=== PATIENT | female | born 1950 | race Caucasian/White ===

== ENCOUNTER 2018-03-10 10:24 | Outpatient (CLI) | payer OTHER, SELFPAY ==
[2018-03-10] VITALS (17 sets, daily range): BP systolic 130–159; BP diastolic 63–87; PULSE 72–85; RESP 10–18; TEMP 36.6; O2SAT 92–100
--- NOTE | 2018-03-10 10:26 | DI.RAD.S_ITS ---
PROCEDURE: PAIN L/S MED/LAT N RFA BILAT INDICATIONS: BIOMECHANICAL LESIONS OF LUMBAR SPINE FINDINGS: Fluoroscopic spot filming was performed to verify placement of spinal needles at the L4, L5 and S1 level(s), as labeled on the films. Appropriate location(s) of the needle tip(s) was confirmed by injection of iodinated contrast. Dictated by: Fabrizio Maria M.D. on 03/10/2018 at 15:24 Approved by: Fabrizio Maria M.D. on 03/10/2018 at 15:24
[2018-03-10] MEDS: MIDAZOLAM 5 MG/5 ML VIAL IV (11:03)
[2018-03-10] MEDS: fentaNYL 100 MCG/2 ML INJ 50 MCG IV (11:30)
[2018-03-10] MEDS: LIDOCAINE 1% 20 ML INJ INJ (11:44)
[2018-03-10] MEDS: BUPIVACAINE 0.25% (PF) VIAL 2 ML INJ (11:44)
--- NOTE | 2018-03-10 11:58 | PC.NURSE ---
pt finished procedure, tolerated well. She was awake and able to get off the table with 2 person assist related to her legs feeling numb. Transferred her from wheelchair to pre procedure room to Linh LOPEZ for continued monitoring.
--- NOTE | 2018-03-10 12:09 | P.PCN_ITS ---
Procedures Date/Time Date of procedure: 03/10/18 Time of procedure: 12:08 General Procedure description: PREOP DIAGNOSIS 1. RECALCITRANT FACET ARTHROPATHY, POST OP DIAGNOSIS 1. RECALCITRANT FACET ARTHROPATHY PROCEDURES 1. BILATERAL L4 AND L5 MEDIAL BRANCH RADIOFREQUENCY NEUROTOMY AND S1 DORSAL RAMUS BRANCH RADIOFREQUENCY NEUROTOMY, PHYSICIAN: Jr Garcia DO INDICATIONS: is referred by for treatment of facet arthropathy. DESCRIPTION OF PROCEDURE Right L4 and L5 medial branch radiofrequency neurotomy and right S1 dorsal ramus radiofrequency neurotomy under fluoroscopy with conscious sedation. The patient is well known to this clinic having undergone previous facet injections with good but temporary relief. The patient has experienced appropriate, concordant relief with previous facet and median branch blocks but the patient's pain has been recalcitrant to further conservative measures. Therefore, based upon the patient's relief and persistent symptoms, the patient is considered an appropriate candidate for facet rhizotomy. All of the patient' s questions regarding the risks versus benefits of the procedure, including, but not limited to, bleeding, infection, temporary as well as lasting nerve injury, paralysis, stroke, and , as well treatment alternatives were answered to satisfaction. After obtaining informed consent, denial of pertinent drug allergies, as well as being made aware of the potential risks of bleeding, infection, spinal cord trauma, paralysis, temporary and permanent nerve damage, seizure, stroke, and possible , the patient was brought to the fluoroscopy suite and positioned prone on the fluoroscopy table. The lumbar region was prepped with Betadine and covered with a fenestrated drape in the usual sterile fashion. Appropriate monitors applied including pulse oximeter, pulse, and blood pressure for regular monitoring throughout the procedure. After review of previous anaesthesic history and IV conscious sedation the patient was deemed safe to proceed with todays procedure with IV conscious sedation as ASA class II designation. Safety time-out was performed to confirm patient ID, procedure to be performed and site of procedure. IV sedation was accomplished with a combination of 5mg of Versed and 50mcg of Fentanyl administered by the RN after DO order, titrated to patient comfort during the course of the procedure while the patient remained responsive to all verbal commands. After local infiltration using 1% lidocaine, under fluoroscopic guidance, a 10- cm RF insulated needle with a 10-mm active tip was positioned parallel to the junction of the right sacral ala and the superior articulating process where the S1 dorsal ramus resides. Needle placement was confirmed with sensory stimulation at 50 Hz, with motor stimulation of .5v on the right which produced local stimulation without radicular component. The stimulation was then increased to 1.5v with, once again, only local multifidus stimulation without radicular component. This was then followed by two discreet lesions performed at 80 degrees Celsius for 90 seconds each. The needle was then removed and the identical procedure was performed along the length of the right L5 medial branch with motor stimulation at .7v on the right. The identical procedure was once again performed along the length of the right L4 medial branch with motor stimulation of .5v on the right. The identical procedure was repeated on the left. The patient tolerated the procedure well without signs or symptoms of complications prior to transfer to the recovery area continued monitoring without incident. The patient was then transferred to the recovery area where they were observed for an appropriate period of time after the injection. The patient reported a VAS score of 9 prior to the procedure and a post-procedure VAS of 0. Total Fluoroscopy Time: 22.7 seconds Total Conscious Sedation Time: 34min POST OP INSTRUCTIONS The patient was provided a Pain Log to continue to record the patient's response to the target-specific procedure prior to the patient's follow-up visit with the referring physician. Additionally, specific post-injection care instructions and a contact number to our office were provided if concerns arise regarding possible complications associated with the procedure are suspected. Jr Garcia, Complications: none
--- NOTE | 2018-03-10 12:17 | PC.NURSE ---
TOOK OVER PT CARE IN POST PROC AREA. PT IN STABLE CONDITION, VSS.
== END 2018-03-10 12:55 | disposition home or self-care (01) ==
PROVIDERS: PCP Family Medicine Geriatric Medicine; Visit Provider Physical Medicine & Rehabilitation
DX: M47.26 Other spondylosis with radiculopathy, lumbar region (principal); M47.27 Other spondylosis with radiculopathy, lumbosacral region; M51.16 Intervertebral disc disorders with radiculopathy, lumbar region; M99.83 Other biomechanical lesions of lumbar region
CPT/HCPCS: 64635; 64636; 99152; 99153; J1040; J1100; J2250; J3010

== ENCOUNTER → 2018-03-31 12:37 | Outpatient (CLI) | payer OTHER, SELFPAY ==
--- NOTE | 2018-03-31 | DI.ECHO.S_ITS ---
[facility]---------+ [facility] +---------+ : : [address] : : : : [id number] : : : : Phone: [phone]+ Echocardiogram Report + + :Name: ELIZABETH VIVAR Study Date: 03/31/2018 Height: 64 in : :[facility] Exam Location: [facility] Weight: 180 lb : : Gender: Female BSA: 1.9 m2 : :: 1950 Age: 67 yrs BP: 150/78 mmHg: :Reason For Study: MURMUR : : Performed By: Azam Iglesias : :Referring: Koko GR : + + Interpretation Summary Left ventricular systolic function is normal without focal wall motion abnormalities with the ejection fraction visually estimated to be 65-70%. Left ventricular wall thickness is at the upper limits of normal. Diastolic parameters suggest a relaxation abnormality of the left ventricle, consistent with probable normal filling pressures. The right ventricle is normal in size and function. Pulmonary artery pressures cannot be estimated because of the lack of a measurable TR jet velocity but the IVC suggests a CVP of around 3 mmHg. The left atrium is moderately dilated while right atrial size is normal. There is mild aortic valve sclerosis but no aortic valve stenosis. There is no significant valvular heart disease. Procedure: A two-dimensional transthoracic echocardiogram with color flow and Doppler was performed. The study quality was technically adequate. There is no prior echocardiogram noted for this patient. The patient was in normal sinus rhythm during the exam. Left Ventricle: The left ventricle is normal in size. Left ventricular wall thickness is at the upper limits of normal. Left ventricular systolic function is normal without focal wall motion abnormalities. The ejection fraction is estimated to be 65-70%. Diastolic parameters suggest a relaxation abnormality of the left ventricle, consistent with probable normal filling pressures. Right Ventricle: The right ventricle is normal in size and function. Atria: The left atrium is moderately dilated. Right atrial size is normal. The interatrial septum is intact with no evidence for an atrial septal defect. Mitral Valve: There is mild mitral annular calcification. The mitral valve leaflets appear normal. There is no evidence of stenosis, fluttering, or prolapse. There is trace mitral regurgitation. Aortic Valve: The aortic valve is trileaflet. There is mild aortic valve sclerosis. The aortic valve is mildly calcified. There is discrete nodular thickening of the left coronary cusp. Leaflet mobility is mildly reduced. There is no aortic valve stenosis. No aortic regurgitation is present. Tricuspid Valve: The tricuspid valve is normal in structure and function. There is trace tricuspid regurgitation. Pulmonary artery pressures cannot be estimated because of the lack of a measurable TR jet velocity but the IVC suggests a CVP of around 3 mmHg. Pulmonic Valve: The pulmonic valve is normal in structure and function. There is trace pulmonic regurgitation. There is no significant valvular heart disease. Great Vessels: The aortic root is normal size. The dimensions of the ascending aorta are normal. The pulmonary artery is normal size. The IVC is of normal diameter and collapses greater than 50% with a sniff. This suggests a low right atrial pressure of 3 mm Hg. Pericardium/ Pleura There is no pericardial effusion. There is no pleural effusion. MMode/2D Measurements & Calculations LVIDd: 4.7 cm LVOT diam: 2.0 cm LVIDs: 2.0 cm Ao root diam: 2.6 cm FS: 56.4 % Aortic Jxn: 2.2 cm EPSS: 0.13 cm asc Aorta Diam: 2.9 cm IVSd: 1.0 cm LVPWd: 0.90 cm LV will. diameter/BSA (cm/m^2): 2.5 LV sys. diameter/BSA (cm/m^2): 1.1 LA dimension: 4.1 cm RA long axis: 4.7 cm LA A2 area: 22.8 cm2 RA area: 17.8 cm2 LA A4 area: 23.1 cm2 RA vol: 56.9 ml LA length (vol): 5.5 cm RA : 30.4 ml/m2 LA vol: 81.1 ml IVC diam: 2.0 cm LA vol index: 43.4 ml/m2 Doppler Measurements & Calculations Ao V2 max: 206.4 cm/sec LVOT Max Jesse: 129.1 cm/sec Ao V2 mean: 158.6 cm/sec LV V1 max P.7 mmHg Ao max P.0 mmHg LV V1 VTI: 28.9 cm Ao mean P.8 mmHg DANIEL(I,D): 2.3 cm2 Ao V2 VTI: 39.6 cm DANIEL(V,D): 1.9 cm2 sev ratio: 0.73 DANIEL indexed to BSA (cm^2/m^2): 1.2 MV E max jesse: 79.6 cm/sec PA V2 max: 99.8 cm/sec MV A max jesse: 83.1 cm/sec PA V2 mean: 79.9 cm/sec MV E/A: 0.96 PA mean P.7 mmHg Med Peak E' Jesse: 7.0 cm/sec PA pr(Accel): 41.6 mmHg E/E' med: 11.3 PA Accel Time: 0.08 sec Lat Peak E' Jesse: 8.5 cm/sec E/E' lat: 9.4 E/e' average: 10.4 MV dec time: 0.23 sec Charbel Brown Jesse: 19.7 cm/sec SV([facility]): 89.5 ml Reading Physician:MORE
== END ==
PROVIDERS: PCP Family Medicine Geriatric Medicine; Visit Provider Family Medicine Geriatric Medicine
DX: I35.8 Other nonrheumatic aortic valve disorders (principal); R01.1 Cardiac murmur, unspecified
CPT/HCPCS: 93306

== ENCOUNTER 2018-06-16 11:07 | Outpatient (CLI) | payer OTHER, SELFPAY ==
[2018-06-16] VITALS (8 sets, daily range): BP systolic 126–150; BP diastolic 66–82; PULSE 80–85; RESP 16–18; TEMP 36.8; O2SAT 95–97
--- NOTE | 2018-06-16 11:09 | DI.RAD.S_ITS ---
PROCEDURE: PAIN L INTERLAMINAR/CAUDAL INJ INDICATIONS: SPONDYLOSIS FINDINGS: Fluoroscopic spot filming was performed to verify placement of spinal needles at the L4-L5 posterior midline level, as labeled on the films. Appropriate location(s) of the needle tip(s) was confirmed by injection of iodinated contrast. IMPRESSION: Successful dorsal midline epidural needle tip localization for steroid injection. Dictated by: Lucas Chiu M.D. on 06/16/2018 at 13:08 Approved by: Lucas Chiu M.D. on 06/16/2018 at 13:09
[2018-06-16] MEDS: MIDAZOLAM 5 MG/5 ML VIAL IV (11:55)
--- NOTE | 2018-06-16 12:14 | P.PCN_ITS ---
Procedures Date/Time Date of procedure: 06/16/18 Time of procedure: 12:13 General Procedure description: PROVIDER: Jr Garcia DO Operative Note PREOP DIAGNOSIS 1. HNP WITH RADICULAR FEATURES, 2. MULTILEVEL CENTRAL STENOSIS, POST OP DIAGNOSIS 1. HNP WITH RADICULAR FEATURES, 2. MULTILEVEL CENTRAL STENOSIS PROCEDURES 1. FLUORSCOPICALLY GUIDED CONTRAST CONTROLLED INTERLAMINAR EPIDURAL STEROID INJECTION -L4/5 PHYSICIAN: Jr Garcia DO INDICATIONs: Franko is referred by Dr. Duarte for treatment of Bilateral Foraminal Stenosis R>L LE symptoms. FINDINGS Multilevel Central Spinal Stenosis with Nerve Root Compression DESCRIPTION OF PROCEDURE Fluoroscopically guided, contrast-controlled L4/5 translaminar epidural steroid injection. Following denial of allergy and review of potential side effects and complications, including, but not necessarily limited to, infection, allergic reaction, local tissue breakdown, temporary as well as permanent nerve injury, paralysis, stroke and possible , the patient indicated that the patient understood and agreed to proceed. An informed consent document was signed by the patient, witnessed by a nurse, and placed in the patient's chart. Additionally, other treatment options including modalities, medications, and physical therapy were reviewed with the patient. After review of previous anaesthesic history and IV conscious sedation the patient was deemed safe to proceed with todays procedure with IV conscious sedation as ASA class II designation. Safety time-out was performed to confirm patient ID, procedure to be performed and site of procedure. IV sedation was accomplished with a combination of 2mg of Versed was administered by the RN after DO order, titrated to patient comfort during the course of the procedure while the patient remained responsive to all verbal commands In the prone position, following sterile prep and drape of the lumbar region, the L4/5 translaminar space was identified fluoroscopically. The skin was anesthetized via a 25-gauge, 1.5-inch needle with 1% lidocaine solution. At this point, a 22-gauge short bevel spinal needle was atraumatically introduced and advanced under fluoroscopic guidance into the region of the L4/5 myers slaminar space. Depth was confirmed on lateral view. Radiological data, including multiple fluoroscopic views of the lumbar spine, reveal a spinal needle at the L4/5 translaminar space. Lateral views then show placement of the needle in the epidural space. Subsequent views show contrast material flowing superiorly and inferiorly in the epidural space. No vascular or intrathecal uptake is observed. At this point, using loss of resistance technique with saline and air, the epidural space was entered. This was confirmed following negative aspiration with injection of approximately 1.5 cc of Isovue 200, showing excellent epidural flow without vascular or intrathecal uptake. At this point, 1 cc of 1% lidocaine solution combined with 2cc or 20mg of dexamethasone was injected without incident. The patient tolerated the procedure well without signs or symptoms of complications prior to transfer to the recovery area continued monitoring without incident. The patient was then transferred to the recovery area where they were observed for an appropriate period of time after the injection. The patient reported a VAS score of 6 prior to the procedure and a post- procedure VAS of 0. Total Fluoroscopy Time: 11.8 seconds, 8.99 mGy Total Conscious Sedation Time: 24min POST OP INSTRUCTIONS The patient was provided a Pain Log to continue to record their response to the target-specific procedure prior to follow-up visit with their referring physician. Additionally, specific post-injection care instructions and a contact number to our office were provided if concerns arise regarding possible complications associated with the procedure are suspected. Jr Garcia DO Complications: none
--- NOTE | 2018-06-16 12:15 | PC.NURSE ---
pt tolerated procedure well. Assisted pt off the table and into w/c with minimal assist. Transferred pt via wheelchair to pre procedure room for continued monitoring with Linh LOPEZ.
[2018-06-16] MEDS: BUPIVACAINE 0.25% (PF) VIAL 2 ML INJ (12:17)
[2018-06-16] MEDS: IOPAMIDOL 15 ML VIAL 3 ML INJ (12:17)
[2018-06-16] MEDS: DEXAMETHASONE 10 MG/ML VIAL 20 MG INJ (12:18)
--- NOTE | 2018-06-16 12:35 | DI.RAD.S_ITS ---
PROCEDURE: XR KNEE LT 3V INDICATIONS: left knee pain TECHNIQUE: 3 views of the knee were acquired. COMPARISON: None. FINDINGS: Bones: Mild tricompartment osteoarthritis in left knee is seen more prominent in the medial femorotibial compartment. No fractures or dislocations. No suspicious bony lesions. Soft tissues: No joint effusion. No suspicious soft tissue calcifications. IMPRESSION: Mild left knee tricompartmental osteoarthritis. Dictated by: Chavo Christian M.D. on 06/16/2018 at 13:25 Approved by: Chavo Christian M.D. on 06/16/2018 at 13:25
== END 2018-06-16 12:50 | disposition home or self-care (01) ==
LOC: RAD 11:08
PROVIDERS: PCP Family Medicine Geriatric Medicine; Visit Provider Physical Medicine & Rehabilitation
DX: M51.16 Intervertebral disc disorders with radiculopathy, lumbar region (principal); M48.061 Spinal stenosis, lumbar region without neurogenic claudication; M25.562 Pain in left knee; M17.12 Unilateral primary osteoarthritis, left knee
CPT/HCPCS: 62323; 73562; 99152; J1100; J2250; J3010

== ENCOUNTER → 2019-09-19 10:45 | Outpatient (CLI) | payer MEDICARE, SELFPAY ==
[2019-09-20 15:58] LABS: COVID19 Sendout NOT DETECTED (Not Detect)
== END ==
PROVIDERS: PCP Family Medicine Geriatric Medicine; Visit Provider Registered Nurse
DX: Z01.812 Encounter for preprocedural laboratory examination (principal)
CPT/HCPCS: 87635

== ENCOUNTER 2019-09-22 12:34 | Outpatient (CLI) | payer MEDICARE, SELFPAY ==
[2019-09-22] VITALS (9 sets, daily range): BP systolic 115–159; BP diastolic 65–89; PULSE 76–88; RESP 16; TEMP 36.8; O2SAT 96–100
--- NOTE | 2019-09-22 12:35 | DI.RAD.S_ITS ---
PROCEDURE: PAIN L INTERLAMINAR/CAUDAL INJ INDICATIONS: SPONDYLOSIS FINDINGS: Fluoroscopic spot filming was performed to verify placement of spinal needles at the L4-L5 level(s), as labeled on the films. Appropriate location(s) of the needle tip(s) was confirmed by injection of iodinated contrast. Dictated by: Fabrizio Maria M.D. on 09/22/2019 at 13:54 Approved by: Fabrizio Maria M.D. on 09/22/2019 at 13:55
[2019-09-22] MEDS: MIDAZOLAM 5 MG/5 ML VIAL IV (13:09)
[2019-09-22] MEDS: IOPAMIDOL 15 ML VIAL 3 ML INJ (13:18)
[2019-09-22] MEDS: BETAMETHASONE 30 MG/5 ML MDV 6 MG INJ (13:18)
[2019-09-22] MEDS: DEXAMETHASONE 10 MG/ML VIAL 20 MG INJ (13:18)
[2019-09-22] MEDS: BUPIVACAINE 0.25% (PF) VIAL 2 ML INJ (13:18)
--- NOTE | 2019-09-22 13:20 | PC.NURSE ---
ASSISTING PT OFF TABLE AND TRANSPORTING TO POST PROC AREA IN STABLE CONDITION. PASSING RN CARE OF PT OFF TO JOHN CURIEL.
--- NOTE | 2019-09-22 13:22 | P.PCN_ITS ---
Procedures Date/Time Date of procedure: 09/22/19 Time of procedure: 13:23 General Procedure description: PROVIDER: Jr Garcia DO Operative Note PREOP DIAGNOSIS 1. HNP WITH RADICULAR FEATURES, 2. MULTILEVEL CENTRAL STENOSIS, POST OP DIAGNOSIS 1. HNP WITH RADICULAR FEATURES, 2. MULTILEVEL CENTRAL STENOSIS PROCEDURES 1. FLUORSCOPICALLY GUIDED CONTRAST CONTROLLED INTERLAMINAR EPIDURAL STEROID INJECTION -L4/5 PHYSICIAN: Jr Garcia DO INDICATIONs: Franko is referred by Dr. Escobedo for treatment of Bilateral Foraminal Stenosis R>L LE symptoms. FINDINGS Multilevel Central Spinal Stenosis with Nerve Root Compression DESCRIPTION OF PROCEDURE Fluoroscopically guided, contrast-controlled L4/5 translaminar epidural steroid injection. Following review of allergy and review of potential side effects and complications, including, but not necessarily limited to, infection, allergic reaction, local tissue breakdown, temporary as well as permanent nerve injury, paralysis, stroke and possible , the patient indicated that the patient understood and agreed to proceed. An informed consent document was signed by the patient, witnessed by a nurse, and placed in the patient's chart. Additionally, other treatment options including modalities, medications, and physical therapy were reviewed with the patient. After review of previous anaesthesic history and IV conscious sedation the patient was deemed safe to proceed with todays procedure with IV conscious sedation as ASA class II designation. Safety time-out was performed to confirm patient ID, procedure to be performed and site of procedure. IV sedation was accomplished with a combination of 3mg of Versed was administered by the RN after DO order, titrated to patient comfort during the course of the procedure while the patient remained responsive to all verbal commands In the prone position, following sterile prep and drape of the lumbar region, the L4/5 translaminar space was identified fluoroscopically. The skin was anesthetized via a 25-gauge, 1.5-inch needle with 1% lidocaine solution. At this point, a 22-gauge short bevel spinal needle was atraumatically introduced and advanced under fluoroscopic guidance into the region of the L4/5 trans laminar space. Depth was confirmed on lateral view. Radiological data, including multiple fluoroscopic views of the lumbar spine, reveal a spinal needle at the L4/5 translaminar space. Lateral views then show placement of the needle in the epidural space. Subsequent views show contrast material flowing superiorly and inferiorly in the epidural space. No vascular or intrathecal uptake is observed. At this point, using loss of resistance technique with saline and air, the epidural space was entered. This was confirmed following negative aspiration with injection of approximately 1.5 cc of Isovue 200, showing excellent epidural flow without vascular or intrathecal uptake. At this point, 1 cc of 1% lidocaine solution combined with 3cc or 20mg of dexamethasone and 6mg betamethasone was injected without incident. The patient tolerated the procedure well without signs or symptoms of complications prior to transfer to the recovery area continued monitoring without incident. The patient was then transferred to the recovery area where they were observed for an appropriate period of time after the injection. The patient reported a VAS score of 6 prior to the procedure and a post- procedure VAS of 0. Total Fluoroscopy Time: 12seconds Total Conscious Sedation Time: 24min POST OP INSTRUCTIONS The patient was provided a Pain Log to continue to record their response to the target-specific procedure prior to follow-up visit with their referring physician. Additionally, specific post-injection care instructions and a contact number to our office were provided if concerns arise regarding possible complications associated with the procedure are suspected. Jr Garcia DO Complications: none
--- NOTE | 2019-09-22 14:14 | ONC.MSW ---
PT arrived pre proc room via wc, SBA from wc to chair, monitoring resumed by JOHN Monge
== END 2019-09-22 14:14 | disposition home or self-care (01) ==
LOC: RAD 12:35
PROVIDERS: PCP Family Medicine; Referring Provider Physical Medicine & Rehabilitation; Visit Provider Physical Medicine & Rehabilitation
DX: M51.16 Intervertebral disc disorders with radiculopathy, lumbar region (principal); M48.061 Spinal stenosis, lumbar region without neurogenic claudication
CPT/HCPCS: 62323; 99152; J0702; J1100; J2250; J3010

== ENCOUNTER → 2020-01-04 09:37 | Outpatient (CLI) | payer MEDICARE, SELFPAY ==
--- NOTE | 2020-01-04 09:39 | DI.RAD.S_ITS ---
PROCEDURE: XR LUMBAR SPINE MIN 4V INDICATIONS: scoliosis, lumbar radiculopathy TECHNIQUE: 5 views of the lumbar spine were acquired. COMPARISON: None. FINDINGS: Bones: 5 nonrib-bearing vertebrae are present. There is mild leftward curvature of thoracolumbar spine centered at L2 level. Degenerative endplate changes and bilateral facet arthrosis throughout lumbar spine is seen.. No vertebral body compression fractures. No suspicious bony lesions. Soft tissues: Overlying bowel gas pattern is normal. No suspicious soft tissue calcifications. Oblique images: No pars defects. There is right-sided bony foraminal stenosis at L3-4 through L5-S1 levels. Left-sided bony foraminal stenosis at L3-4 and L4-5 levels are also seen. IMPRESSION: Mild levoscoliosis of thoracolumbar spine centered at L2 level. Degenerative disc disease throughout lumbar spine. No acute compression fracture or spondylolisthesis. No gross pars defect. Suggestion of bilateral bony foraminal stenosis as above. Dictated by: Chavo Christian M.D. on 01/04/2020 at 10:01 Approved by: Chavo Christian M.D. on 01/04/2020 at 10:02
--- NOTE | 2020-01-04 09:39 | DI.MRI.S_ITS ---
PROCEDURE: MR LUMBAR SPINE WO CON INDICATIONS: scoliosis TECHNIQUE: Noncontrast sagittal T1 spin echo and T2 fast echo, sagittal STIR, axial T1 and T2 fast spin echo through the lumbar spine. In cases with scoliosis, additional coronal T2 fast spin echo may be performed. COMPARISON: [facility], CR, XR LUMBAR SPINE MIN 4V, 01/04/2020, 8:39. FINDINGS: Image quality: Excellent. Alignment and Curvature: There is mild L2-L3, L3-L4 and L4-L5 retrolisthesis. There is approximately 9? of convex left lumbar spine curvature. Bone Marrow: Reactive endplate changes noted adjacent to the L1-L2, L2-L3, L3-L4, L4-L5 and L5-S1 discs. No acute vertebral body compression fractures. Spinal Cord: Conus medullaris terminates at the L2 level. Visualized cord demonstrates normal signal and size. Paraspinous Soft Tissues: No paravertebral masses. T12-L1: Loss of disc signal and height. Moderate, diffuse disc bulge. Small right central disc protrusion. Mild bilateral facet hypertrophy. Mild narrowing of the central canal. Mild right neural foraminal narrowing. No neural compression. L1-L2: Loss of disc signal and height. Moderate, diffuse disc bulge. Large right central disc protrusion. Mild bilateral facet hypertrophy. Mild to moderate narrowing of the central canal. Mild right neural foraminal narrowing. No neural compression. L2-L3: Loss of disc signal and height. Mild to moderate diffuse disc bulge. Mild bilateral facet hypertrophy. Mild to moderate narrowing of the central canal. Moderate right and mild left neural foraminal narrowing. No neural compression. L3-L4: Loss of disc signal and height. Mild, diffuse disc bulge. [id number] facet and mild ligamentum flavum hypertrophy. Moderate narrowing of the central canal. Moderate bilateral neural foraminal narrowing. No neural compression. L4-L5: Loss of disc signal and height. Mild, diffuse disc bulge. Moderate bilateral facet and mild ligamentum flavum hypertrophy. Severe narrowing of the central canal with crowding of the nerve roots of the cauda equina. Moderate bilateral neural foraminal narrowing. L5-S1: Loss of disc signal and height. Mild, diffuse disc bulge. Mild bilateral facet hypertrophy. No central stenosis. Moderate right and severe left neural foraminal narrowing with compression of the exiting left L5 nerve root. IMPRESSION: 1. Approximately 9? of convex left lumbar spine curvature in the nonweightbearing position. 2. Multilevel degenerative disc disease. 3. Multilevel facet arthropathy. 4. Severe L4-L5 central canal narrowing with crowding of the nerve roots of the cauda equina. 5. Severe left L5-S1 neural foraminal narrowing with compression of the exiting left L5 nerve root. Dictated by: Francy Samuels MD, PhD on 01/04/2020 at 10:20 Approved by: Francy Samuels MD, PhD on 01/04/2020 at 10:35
== END ==
PROVIDERS: PCP Family Medicine; Referring Provider Physical Medicine & Rehabilitation; Visit Provider Physical Medicine & Rehabilitation
DX: M51.16 Intervertebral disc disorders with radiculopathy, lumbar region (principal); M47.26 Other spondylosis with radiculopathy, lumbar region; M47.27 Other spondylosis with radiculopathy, lumbosacral region; M48.061 Spinal stenosis, lumbar region without neurogenic claudication; M48.07 Spinal stenosis, lumbosacral region; M41.85 Other forms of scoliosis, thoracolumbar region
CPT/HCPCS: 72110; 72148; 99214

== ENCOUNTER → 2020-04-18 11:11 | Outpatient (CLI) | payer MEDICARE, SELFPAY ==
[2020-04-18 12:41] LABS: COVID19 -Nasal RAPID Negative (Negative)
== END ==
PROVIDERS: PCP Family Medicine; Visit Provider Physician Assistant
DX: Z01.812 Encounter for preprocedural laboratory examination (principal); Z20.822 Contact with and (suspected) exposure to COVID-19
CPT/HCPCS: 87635; C9803

== ENCOUNTER 2020-04-19 10:21 | Day surgery (SDC) | payer MEDICARE, SELFPAY ==
[2020-04-17 07:43] VITALS: BMI 30.9
[2020-04-19] VITALS (18 sets, daily range): BP systolic 129–161; BP diastolic 64–82; PULSE 83–103; RESP 8–97; TEMP 36.7–36.9; O2SAT 10–98; BMI 30.9
--- NOTE | 2020-04-19 | DI.RAD.S_ITS ---
PROCEDURE: XR LUMBAR SPINE 2-3V INDICATIONS: LAMINECTOMIES TECHNIQUE: 3 intraoperative images of the lumbar spine. COMPARISON: [facility], , XR LUMBAR SPINE MIN 4V, 01/04/2020, 8:39. FINDINGS: Marker projects over the L4-L5 left disc space. IMPRESSION: Intraoperative guidance provided. Dictated by: Tyrese Guzman M.D. on 04/19/2020 at 14:03 Approved by: Tyrese Guzman M.D. on 04/19/2020 at 14:04
[2020-04-19] MEDS: LACTATED RINGERS 1,000 ML 42 ML IV ×2 (11:30→14:04)
--- NOTE | 2020-04-19 11:36 | PM.HP.1 ---
History of Present Illness History of Present Illness Date Patient Seen: 04/19/20 Time Patient Seen: 11:36 Chief complaint: SDC *OPB* *$350 copay* Narrative: 61-year-old female with back and bilateral leg pain. Longstanding chronic low back pain that is just more of an ache at this point. She has been through physical therapy, massage, and epidurals without long-term relief. The leg pain is becoming more more bothersome, sometimes as the right leg, sometimes the left, but more commonly the right. Runs down the anterolateral aspect of the thigh over the knee and down the medial aspect of the main. When she stands up the pain is bad and sometimes the legs will feel weak and go out from underneath her. Pain can be 6/10 or higher. Patient History Medical History Ankle pain Asthma Cervical spine disease Chicken pox Chronic back pain Facet arthropathy, lumbar Head injury (~2011) History of anesthesia reaction Lumbar spine pain Measles Mumps Rosacea Scoliosis Scoliosis due to degenerative disease of spine in adult patient Surgical History Anesthesia complication History of bunionectomy (~1979) History of hand surgery (~1979) History of sinus surgery (03/2014) Family & Social History Family History Brother Hypertension Sister Hypertension Father No problems noted. Grandfather No problems noted. Grandmother No problems noted. Mother No problems noted. Grandfather No problems noted. Grandmother No problems noted. Social History: household members spouse Tobacco & Substance use: Smoking Status Never smoker alcohol intake frequency a few times a month Substance Use Type does not use Meds Home Medications and Allergies Home Medications Medication Instructions Recorded Confirmed Type fluticasone propion-salmeterol 1 puff INH BID #0 06/05/16 04/19/20 History [Advair Diskus] omeprazole 20 mg PO HS #0 06/05/16 04/19/20 History cyclobenzaprine 10 mg tablet 10 mg PO TID PRN #60 tab 07/01/18 04/17/20 Rx ketoconazole 2 % shampoo TOP 10/11/19 02/15/20 History losartan 25 mg tablet 50 mg PO DAILY tab 10/11/19 04/19/20 History pravastatin 20 mg tablet 10 mg PO HS #0 tab 10/11/19 04/19/20 History celecoxib 200 mg capsule 200 mg PO DAILY #90 cap 12/16/19 04/19/20 Rx gabapentin 600 mg PO BEDTIME 04/17/20 04/19/20 History Allergies Allergy/AdvReac Type Severity Reaction Status Date / Time carrot Allergy Severe Anaphylaxis Verified 04/19/20 10:52 Latex, Natural Rubber Allergy Intermediate Rash Verified 04/19/20 10:51 nitrofurantoin Allergy Unknown Verified 02/15/20 15:36 [From MACRODANTIN] pseudoephedrine Allergy Unknown Verified 02/15/20 15:36 [From SUDAFED] fentanyl AdvReac Severe Hypotension, Verified 04/17/20 07:46 nausea Review of Systems Constitutional Constitutional: Denies chills and Reports fever(s) Cardiovascular Cardiovascular: Denies chest pain Exam Vital Signs (past 8 hours): - 04/19/20 11:03 Temperature 98.4 F Pulse Rate 90 Respiratory Rate 16 Blood Pressure 161/79 H Pulse Oximetry 98 Oxygen Delivery Method Room Air Const Orientation: alert and oriented x3 Resp Auscultation: clear to auscultation bilaterally Cardio Rate: regular rate Rhythm: regular rhythm Back/Spine/Pelvis Other: Tender across the lumbosacral junction and bilateral lower lumbar paraspinals and gluteals. 5/5 motor both lower extremities except 4/5 right hip flexor. Intact sensation, 1+ distal pulses both lower extremities. Objective Imaging Lumbar MRI: My impression: From 01/01/2020 shows L2-3 mild central stenosis. L3-4 moderate central, moderate right, mild left foraminal narrowing. L4-5: Severe central, moderate right, severe left foraminal narrowing. L5-S1 moderate right, severe left foraminal narrowing Assessment & Plan Assessment & Plan narrative: Lumbar stenosis with radiculopathy. Plan is for a L3 through 5 laminectomy with foraminotomies. Risks and benefits of surgery were again discussed and appropriate consents obtained. COVID-19 COVID-19 status: Negative Result date/Date tested (Pos, Neg/Pending): 04/18/20
[2020-04-19] MEDS: ACETAMINOPHEN 325 MG TABLET 975 MG PO (11:58)
--- NOTE | 2020-04-19 11:59 | SUR.PREOP ---
Per Dr. Amos at bedside, verbal order received to only give 650mg of Acetaminophen not 975mg.
[2020-04-19] MEDS: CEFAZOLIN 2 GM/100 ML FROZ.PIGGY IV (12:30)
[2020-04-19] MEDS: SODIUM CHLORIDE 0.9% 1,000 ML, GENTAMICIN 80 MG IRR (12:59)
[2020-04-19] MEDS: VANCOMYCIN 1,000 MG VIAL 1000 MG TOP (12:59)
[2020-04-19] MEDS: THROMBIN (RECOMBINANT) 5,000 UNIT VIAL 5000 UNIT TOP (12:59)
[2020-04-19] MEDS: BUPIVACAINE LIPOSOME 266 MG/20 ML VIAL INJ (13:00)
[2020-04-19] MEDS: BUPIVACAINE 0.5% (PF) VIAL 30 ML INJ (13:02)
--- NOTE | 2020-04-19 13:04 | SUR.OPER ---
Prone on spine table, head in foam head support, padded chest and pelvic supports, gel pad at knees, lower legs supported by pillows; nipples, genitalia and toes free of pressure, arms secured on foam padded arm boards at <90 degrees abduction. Tape over blanket at thigh secured to table.
--- NOTE | 2020-04-19 14:21 | PM.OP.1 ---
Operative Date/Time/Diagnoses Date of procedure: 04/19/20 Time of procedure: 14:21 Pre-op diagnosis: Lumbar stenosis with radiculopathy Post-op diagnosis: same Procedure & Clinicians Procedure: L3-4, L4-5 laminectomies Use of microscope Same procedure as scheduled: Yes Indications: [age] year old female with intractable pain from spinal stenosis. They had failed conservative management and requested operative intervention. Risks and benefits of surgery were discussed and appropriate consents were obtained. Surgeon: Chris James Plant Assigner: Jeniffer Norris Anesthesia Type: General Operative Notes Findings: None Closure Type: primary Specimen(s): none sent Estimated Blood Loss (mL): 10 Procedure in detail: Patient was brought to the operating room and intubated on the table. A time-out was performed. There were rolled over the well-padded prone position on the Malik table. The back was prepped and draped in standard sterile fashion. Preoperative antibiotics were given. Using fluoroscopy, a 4 cm incision was made to the right of the midline at the L4-5 level. We used Bovie to come down to and split the fascia. We then used the [employer] MaXcess dilators with fluoroscopy and then opened our retractors. The soft tissue was cleared off with Bovie, a marker was placed, an x-ray was taken to confirm positioning. We then brought in the microscope. A combination of high-speed bur and Kerrison were used to perform a laminectomy at L4-5. We carefully depressed the dura and reach to the opposite side removed the ligamentum and facet hypertrophy to decompress the central canal and free up the traversing L5 and S1 roots as well as the exiting L4 roots we cleared out the foramen. We then moved the retractor up to the L3-4 level. Again of laminectomy was performed from the right side. We carefully depressed the dura to clear out the whole canal to free up the traversing L4 through S1 roots as well as the exiting L3 roots. We confirmed decompression with the ball probe. Once everything was adequately decompressed, the wound was copiously irrigated. The fascia was closed. A combination of Exparel and Marcaine were used for postoperative pain control. Vancomycin powder was placed in the wound. Superficial and skin were closed. Sterile dressing was placed. The patient was then rolled over, transferred to the stretcher, and brought to recovery room without complications. Complications: none Post-operative Condition: stable Disposition: PACU Plan for aftercare: Outpatient. Limited bending, twisting, lifting for the 1st 2 weeks.
[2020-04-19] MEDS: KETOROLAC 30 MG/ML VIAL IV (15:06)
[2020-04-19] MEDS: OXYCODONE IR 5 MG TABLET PO ×2 (15:20→16:43)
[2020-04-19] MEDS: hydrOXYzine pamoate 25 MG CAPSULE PO (15:21)
== END 2020-04-19 17:00 | disposition home or self-care (01) ==
LOC: OR 10:22 → AC 10:31
PROVIDERS: PCP Family Medicine; Referring Provider Orthopaedic Surgery; Visit Provider Orthopaedic Surgery
PROC: (CPT 63047; principal; 2020-04-19 11:45)
DX: M48.062 Spinal stenosis, lumbar region with neurogenic claudication (principal); M54.16 Radiculopathy, lumbar region; M41.86 Other forms of scoliosis, lumbar region; J45.909 Unspecified asthma, uncomplicated; I10 Essential (primary) hypertension; E78.5 Hyperlipidemia, unspecified
CPT/HCPCS: 63047; 63048; 72100; 76000; C9290; J0330; J0690; J1100; J1170; J1885; J2250; J2405; J2704

== ENCOUNTER → 2021-02-12 11:39 | Outpatient (CLI) | payer MEDICARE, SELFPAY ==
--- NOTE | 2021-02-12 11:40 | DI.MRI.S_ITS ---
PROCEDURE: MR HEAD/BRAIN WO/W CON INDICATIONS: EVAL FOR TRIGEMINAL INVOLVEMENT FOR JAW PAIN TECHNIQUE: Noncontrast sagittal T1 spin echo, axial T2 fast spin echo, axial FLAIR, axial gradient echo, axial diffusion and ADC through the brain. Axial/sagittal/coronal 3-D CISS, thin-slice axial T1 spin echo with fat saturation through the skull base. After the administration of contrast, axial and coronal thin-slice T1 spin echo with fat saturation through the skull base, axial T1 spin echo with fat saturation through the brain. COMPARISON: None. FINDINGS: Image quality: Excellent. Trigeminal nerves: In this patient with this given history, scrutiny is given to the trigeminal nerves. The trigeminal nerves demonstrate a normal appearance, without masses or abnormal enhancement seen along their courses, including within the Meckel's caves. CSF spaces: Ventricles are normal in size and shape. No extra-axial fluid collections. Basal cisterns are patent. Brain: No intracranial bleeds or mass effects. No abnormal intracranial enhancement. Diffusion weighted images show no acute ischemic insults. Jasmine-white matter interface is intact. Brainstem is normal. Normal intravascular flow voids are present. Note is made of age-appropriate brain parenchymal volume loss and chronic small vessel ischemic changes. Skull and face: Calvarial marrow signal is normal. Orbits appear normal. Sinuses: There is moderate mucosal thickening seen within the right maxillary sinus posteriorly. Mild mucosal thickening is seen elsewhere within the paranasal sinuses. No abnormal fluid is seen within the mastoid air cells. IMPRESSION: No abnormality of the trigeminal nerves can be seen. No significant intracranial process is seen. Dictated by: Samson George M.D. on 02/12/2021 at 11:52 Approved by: Samson George M.D. on 02/12/2021 at 11:55
== END ==
PROVIDERS: PCP Family Medicine; Referring Provider Family Medicine; Visit Provider Family Medicine
DX: G50.1 Atypical facial pain (principal)
CPT/HCPCS: 70553; A9579

== ENCOUNTER → 2023-01-28 10:35 | Outpatient (CLI) | payer MEDICARE, SELFPAY ==
--- NOTE | 2023-01-28 10:36 | DI.RAD.S_ITS ---
PROCEDURE: XR LUMBAR SPINE MIN 4V INDICATIONS: BACK PAIN TECHNIQUE: 5 views of the lumbar spine were acquired, including bilateral oblique views. COMPARISON: [facility], , XR LUMBAR SPINE 2-3V, 04/19/2020, 12:56. FINDINGS: Bones: 5 nonrib-bearing vertebrae are present. There is mild levoscoliosis of upper lumbar spine with apex at L1-2 level and compensatory mild rightward curvature of lower lumbar spine with apex at L4-5 level. Degenerative endplate changes, loss of disc height and bilateral facet arthrosis throughout lumbar spine is seen.. No vertebral body compression fractures. No suspicious bony lesions. Soft tissues: Overlying bowel gas pattern is normal. No suspicious soft tissue calcifications. Oblique images: No pars defects. IMPRESSION: Degenerative disc disease throughout lumbar spine. No acute compression fracture or spondylolisthesis. Mild scoliosis as above. No gross pars defects. Dictated by: Chavo Christian M.D. on 01/28/2023 at 11:18 Approved by: Chavo Christian M.D. on 01/28/2023 at 11:19
== END ==
PROVIDERS: PCP Student in an Organized Health Care Education/Training Program; Referring Provider Physical Medicine & Rehabilitation; Visit Provider Physical Medicine & Rehabilitation
DX: M47.817 Spondylosis without myelopathy or radiculopathy, lumbosacral region (principal); M48.00 Spinal stenosis, site unspecified; M47.816 Spondylosis without myelopathy or radiculopathy, lumbar region; M51.36 Other intervertebral disc degeneration, lumbar region; M41.86 Other forms of scoliosis, lumbar region; M41.50 Other secondary scoliosis, site unspecified; M54.17 Radiculopathy, lumbosacral region; M47.27 Other spondylosis with radiculopathy, lumbosacral region; Z68.30 Body mass index [BMI] 30.0-30.9, adult
CPT/HCPCS: 72110; 99214

== ENCOUNTER 2023-03-24 13:01 | Outpatient (CLI) | payer MEDICARE, SELFPAY ==
[2023-03-24] VITALS (8 sets, daily range): BP systolic 145–199; BP diastolic 59–91; PULSE 72–83; RESP 13–21; TEMP 37.2; O2SAT 92–98
--- NOTE | 2023-03-24 13:30 | DI.RAD.S_ITS ---
PROCEDURE: PAIN L/SI FACET INJ/BLK 1STL INDICATIONS: spondylosis COMPARISON: [facility], CR, XR LUMBAR SPINE MIN 4V, 01/28/2023, 10:49. FINDINGS: Fluoroscopic spot filming was performed to verify placement of spinal needles at the L3, L4 and L5 level(s), as labeled on the films. Appropriate location(s) of the needle tip(s) was confirmed by injection of iodinated contrast. IMPRESSION: Needle and contrast placement as above. Dictated by: Mona Keys M.D. on 03/24/2023 at 21:17 Approved by: Mona Keys M.D. on 03/24/2023 at 21:17
[2023-03-24] MEDS: MIDAZOLAM 2 MG/2 ML VIAL IV (14:01)
[2023-03-24] MEDS: iopamidoL 15 ML VIAL 3 ML INJ (14:08)
[2023-03-24] MEDS: BUPIVACAINE 0.5% (PF) 10 ML VIAL 2 ML INJ (14:08)
--- NOTE | 2023-03-24 14:18 | P.PCN_ITS ---
Date/Time/Diagnoses Date of procedure: 03/24/23 Time of procedure: 14:18 Pre-procedure diagnosis: 1. FACET ARTHROPATHY Post-procedure diagnosis: same Procedure Notes Procedure: 1. Right L3, L4 and L5 MB BLOCKS Indications: Franko is referred by Dr. Reyes for treatment of Right Axial LBP. Physician: Jr Garcia Total Fluoroscopy time (seconds): 8 Total sedation minutes: 12 Complications: none Procedure in detail & Post-procedure care: DESCRIPTION OF PROCEDURE Fluoroscopically guided, contrast-controlled right L3, L4 and L5 medial branch blocks with 0.5cc of 0.5% Marcaine. Following review of allergy and review of potential side effects and complications, including, but not necessarily limited to, infection, allergic reaction, local tissue breakdown, nerve injury, paralysis, stroke and possible , the patient indicated that the patient understood and agreed to proceed. An informed consent document was signed by the patient, witnessed by a nurse, and placed in the patient's chart. After review of previous anaesthesic history and IV conscious sedation the patient was deemed safe to proceed with today?s procedure with IV conscious sedation as ASA class II designation. Safety time-out was performed to confirm patient ID, procedure to be performed and site of procedure. IV sedation was accomplished with a combination of 2mg of Versed was administered by the RN after DO order, titrated to patient comfort during the course of the procedure while the patient remained responsive to all verbal commands In the prone position, following sterile prep and drape of the lumbar region, t he right L3, L4 and L5 anatomical location of the medial branch of the dorsal ramus was identified fluoroscopically. Subsequently an anesthetic skin wheal using 1% lidocaine solution was initiated at each of the anatomical spots. Subsequently then a 22-gauge 3.5-inch spinal needle was atraumatically introduced and advanced under fluoroscopic guidance at each of the corresponding sites at the right L3, L4 and L5 MB. After negative aspiration, 0.2 cc of Isovue 200 was injected, confirming placement without vascular or intrathecal uptake. Subsequently then 0.5cc of 0.5% Marcaine solution was injected at each of the corresponding sites at the right L3, L4 and L5 medial branch locations. The patient tolerated the procedure well without signs or symptoms of complications. The procedure tolerated the procedure well without signs or symptoms of complications prior to transfer to the recovery area continued monitoring without incident. Post-procedure, the patient was monitored initiating provocative activities to measure the amount of relief from block of the facetogenic pain. The patient reported a VAS of 7 prior to the procedure and a post-procedure VAS of 1. It has been a pleasure to assist in the diagnostic and therapeutic care of your patient. POST OP INSTRUCTIONS The patient was provided with a Pain Log to complete over the next several hours and subsequent days prior to the patient's follow up with the ordering physician. If the patient has career services officer relief to the solution applied, then they may be a candidate for medial branch rhizotomy. The patient is aware, was provided, once again, with a Pain Log and will follow up with the referring physician for review and clinical correlation.
== END 2023-03-24 14:34 | disposition home or self-care (01) ==
LOC: RAD 13:02
PROVIDERS: PCP Student in an Organized Health Care Education/Training Program; Referring Provider Physical Medicine & Rehabilitation; Visit Provider Physical Medicine & Rehabilitation
DX: M47.816 Spondylosis without myelopathy or radiculopathy, lumbar region (principal)
CPT/HCPCS: 64493; 64494; 99152; J2250

== ENCOUNTER 2023-09-08 13:26 | Outpatient (CLI) | payer MEDICARE, SELFPAY ==
[2023-09-08] VITALS (7 sets, daily range): BP systolic 136–187; BP diastolic 62–84; PULSE 76–81; RESP 15–19; TEMP 36.8; O2SAT 95–98
[2023-09-08] MEDS: MIDAZOLAM 2 MG/2 ML VIAL IV (13:55)
[2023-09-08] MEDS: iopamidoL 15 ML VIAL 3 ML INJ (13:58)
[2023-09-08] MEDS: LIDOCAINE 2% INJ SDV 5ML 5 ML INJ (14:00)
--- NOTE | 2023-09-08 14:00 | DI.RAD.S_ITS ---
PROCEDURE: PAIN L/SI FACET INJ/BLK 1STL INDICATIONS: Right L3-L4 and L5 medial branch block SA COMPARISON: [facility], , PAIN L/SI FACET INJ/BLK 1STL, 03/24/2023, 15:05. FINDINGS: Fluoroscopic spot filming was performed to verify placement of spinal needles at the right L3, L4, and L5 levels, as labeled on the films. Appropriate locations of the needle tips were confirmed by injection of iodinated contrast. IMPRESSION: Intraprocedural examination demonstrates appropriate needle positioning. Approved by: Vimal Brand M.D. on 09/08/2023 at 22:26
--- NOTE | 2023-09-08 14:13 | PM.PROC.IR.1 ---
Date/Time/Diagnoses Date of procedure: 09/08/23 Time of procedure: 14:13 Pre-procedure diagnosis: 1. FACET ARTHROPATHY Post-procedure diagnosis: same Procedure Notes Procedure: 1. RIGHT L3, L4 AND L5 DIAGNOSTIC MB BLOCKS Indications: Franko is referred by Dr. Reyes for treatment of right Axial LBP. Physician: Jr Garcia Total Fluoroscopy time (seconds): 11 Total sedation minutes: 12 Complications: none Procedure in detail & Post-procedure care: DESCRIPTION OF PROCEDURE Fluoroscopically guided, contrast-controlled right L3, L4 AND L5 medial branch blocks with 0.5cc of 2% Lidocaine. Following review of allergy and review of potential side effects and complications, including, but not necessarily limited to, infection, allergic reaction, local tissue breakdown, nerve injury, paralysis, stroke and possible , the patient indicated that the patient understood and agreed to proceed. An informed consent document was signed by the patient, witnessed by a nurse, and placed in the patient's chart. After review of previous anaesthesic history and IV conscious sedation the patient was deemed safe to proceed with today's procedure with IV conscious sedation as ASA class II designation. Safety time-out was performed to confirm patient ID, procedure to be performed and site of procedure. IV sedation was accomplished with a combination of 2mg of Versed was administered by the RN after DO order, titrated to patient comfort during the course of the procedure while the patient remained responsive to all verbal commands In the prone position, following sterile prep and drape of the lumbar region, the right L3, L4 AND L5 anatomical location of the medial branch of the dorsal ramus was identified fluoroscopically. Subsequently an anesthetic skin wheal using 1% lidocaine solution was initiated at each of the anatomical spots. Subsequently then a 22-gauge 3.5-inch spinal needle was atraumatically introduced and advanced under fluoroscopic guidance at each of the corresponding sites at the right L3, L4 and L5 MB. After negative aspiration, 0.2cc of Isovue 200 was injected, confirming placement without vascular or intrathecal uptake. Subsequently then 0.5cc of 2% Lidocaine solution was injected at each of the corresponding sites at the right L3, L4 and L5 medial branch locations. The patient tolerated the procedure well without signs or symptoms of complications. The patient tolerated the procedure well without signs or symptoms of complications prior to transfer to the recovery area continued monitoring without incident. Post-procedure, the patient was monitored initiating provocative activities to measure the amount of relief from block of the facetogenic pain. The patient reported a VAS of 8 prior to the procedure and a post-procedure VAS of 2. It has been a pleasure to assist in the diagnostic and therapeutic care of your patient. POST OP INSTRUCTIONS The patient was provided with a Pain Log to complete over the next several hours and subsequent days prior to the patient's follow up with the ordering physician. If the patient has merchandise marker relief to the solution applied, then they may be a candidate for medial branch rhizotomy. The patient is aware, was provided, once again, with a Pain Log and will follow up with the referring physician for review and clinical correlation
== END 2023-09-08 14:30 | disposition home or self-care (01) ==
PROVIDERS: PCP Student in an Organized Health Care Education/Training Program; Referring Provider Physical Medicine & Rehabilitation; Visit Provider Physical Medicine & Rehabilitation
DX: M47.816 Spondylosis without myelopathy or radiculopathy, lumbar region (principal)
CPT/HCPCS: 64493; 64494; 99152; J2250

== ENCOUNTER 2023-10-06 07:13 | Outpatient (CLI) | payer MEDICARE, SELFPAY ==
[2023-10-06] VITALS (12 sets, daily range): BP systolic 148–185; BP diastolic 64–92; PULSE 71–91; RESP 15–72; TEMP 36.7; O2SAT 18–100
--- NOTE | 2023-10-06 08:00 | DI.RAD.S_ITS ---
PROCEDURE: PAIN L/S MED/LAT N RFA INDICATIONS: Right L3-L4 and L5 medial branch RFA COMPARISON: None. FINDINGS: Fluoroscopic spot filming was performed to verify placement of spinal needles at the right L3 through L5 level(s), as labeled on the films. Appropriate location(s) of the needle tip(s) was confirmed by injection of iodinated contrast. IMPRESSION: Fluoroscopic guidance utilized for a medial branch RFA. Dictated by: Cholo Monzon M.D. on 10/06/2023 at 10:23 Approved by: Cholo Monzon M.D. on 10/06/2023 at 10:24
[2023-10-06] MEDS: MIDAZOLAM 2 MG/2 ML VIAL IV (08:10)
[2023-10-06] MEDS: LIDOCAINE 1% 20 ML 5 ML INJ (08:17)
[2023-10-06] MEDS: BUPIVACAINE 0.5% (PF) 10 ML VIAL 5 ML INJ (08:17)
[2023-10-06] MEDS: MIDAZOLAM 2 MG/2 ML VIAL 1 MG IV (08:23)
--- NOTE | 2023-10-06 08:51 | P.PCN_ITS ---
Date/Time/Diagnoses Date of procedure: 10/06/23 Time of procedure: 08:51 Pre-procedure diagnosis: 1. RECALCITRANT FACET ARTHROPATHY Post-procedure diagnosis: same Procedure Notes Procedure: 1. RIGHT L3, L4 AND L5 MEDIAL BRANCH RADIOFREQUENCY NEUROTOMY Indications: Franko is referred by Dr. Reyes for treatment of facet arthropathy. Physician: Jr Garcia Total Fluoroscopy time (seconds): 11 Total sedation minutes: 27 Complications: none Procedure in detail & Post-procedure care: DESCRIPTION OF PROCEDURE Right L3, L4 and L5 medial branch radio-frequency neurotomy The patient is well known to this clinic having undergone previous facet injections with good but temporary relief. The patient has experienced appropriate, concordant relief with previous facet and median branch blocks but the patient's pain has been recalcitrant to further conservative measures. Therefore, based upon the patient's relief and persistent symptoms, the patient is considered an appropriate candidate for facet rhizotomy. All of the patient's questions regarding the risks versus benefits of the procedure, including, but not limited to, bleeding, infection, temporary as well as lasting nerve injury, paralysis, stroke, and , as well treatment alternatives were answered to satisfaction. After obtaining informed consent, denial of pertinent drug allergies, as well as being made aware of the potential risks of bleeding, infection, spinal cord trauma, paralysis, temporary and permanent nerve damage, seizure, stroke, and possible , the patient was brought to the fluoroscopy suite and positioned prone on the fluoroscopy table. The lumbar region was prepped with chlorhexadine and covered with a fenestrated drape in the usual sterile fashion. Appropriate monitors applied including pulse oximeter, pulse, and blood pressure for regular monitoring throughout the procedure. After review of previous anaesthesic history and IV conscious sedation the patient was deemed safe to proceed with today?s procedure with IV conscious sedation as ASA class II designation. Safety time-out was performed to confirm patient ID, procedure to be performed and site of procedure. IV sedation was accomplished with a combination of 3mg of Versed administered by the RN after DO order, titrated to patient comfort during the course of the procedure while the patient remained responsive to all verbal commands. After local infiltration using 1% lidocaine, under fluoroscopic guidance, a 10- cm RF insulated needle with a 10-mm active tip was positioned parallel to the junction of the right the superior articulating process where the L3 medial branch resides. Needle placement was confirmed with sensory stimulation at 50 Hz, with motor stimulation of .5v on the right which produced local stimulation without radicular component. The stimulation was then increased to 2v with, once again, only local multifidus stimulation without radicular component. This was then followed by two discreet lesions performed at 80 degrees Celsius for 90 seconds each. The needle was then removed and the identical procedure was performed along the length of the right L4 medial branch with motor stimulation at .7v on the right. The identical procedure was once again performed along the length of the right L5 and medial branch with motor stimulation of .5v on the right. The patient tolerated the procedure well without signs or symptoms of complications prior to transfer to the recovery area continued monitoring without incident. The patient was then transferred to the recovery area where they were observed for an appropriate period of time after the injection. The patient reported a VAS score of 9 prior to the procedure and a post-procedure VAS of 0. POST OP INSTRUCTIONS The patient was provided a Pain Log to continue to record the patient's response to the target-specific procedure prior to the patient's follow-up visit with the referring physician. Additionally, specific post-injection care instructions and a contact number to our office were provided if concerns arise regarding possible complications associated with the procedure are suspected.
== END 2023-10-06 10:00 | disposition home or self-care (01) ==
LOC: RAD 07:13
PROVIDERS: PCP Student in an Organized Health Care Education/Training Program; Referring Provider Physical Medicine & Rehabilitation; Visit Provider Physical Medicine & Rehabilitation
DX: M47.816 Spondylosis without myelopathy or radiculopathy, lumbar region (principal)
CPT/HCPCS: 64635; 64636; 99152; 99153; J2250

== ENCOUNTER → 2023-12-30 14:30 | Outpatient (CLI) | payer MEDICARE, SELFPAY ==
--- NOTE | 2023-12-30 14:31 | DI.RAD.S_ITS ---
PROCEDURE: XR CERVICAL SPINE 4V OR 5V INDICATIONS: h of trauma TECHNIQUE: 5 views of the cervical spine acquired. COMPARISON: None. FINDINGS: Cervical spine curvature and alignment: Normal. Bones: There are no osseous abnormalities. Disc spaces: Moderate C5-6 C6-7 and mild C7-T1 degenerative disc disease appreciated. Intervertebral foramen: Moderate left C5-6 and C6-7 and right C6-7 IV foraminal narrowing due to degenerative spurring appreciated. Soft tissues: No soft tissue swelling, calcification or mass. IMPRESSION: Degeneration. Dictated by: Ashish Dominguez M.D. on 12/31/2023 at 8:17 Approved by: Ashish Dominguez M.D. on 12/31/2023 at 8:18
--- NOTE | 2023-12-30 14:31 | DI.RAD.S_ITS ---
PROCEDURE: XR THORACIC SPINE 2V INDICATIONS: hx of trauma TECHNIQUE: 3 views of the thoracic spine were acquired. COMPARISON: None. FINDINGS: Thoracic spine curvature and alignment: Slight rightward curve appreciated. Bones: There are no osseous abnormalities. Disc spaces: Moderate degenerative disc disease is seen throughout the mid lower thoracic spine. Intervertebral foramen: Grossly normal in width. Soft tissues: No soft tissue swelling, calcification or mass. IMPRESSION: Degeneration Dictated by: Ashish Dominguez M.D. on 12/31/2023 at 8:12 Approved by: Ashish Dominguez M.D. on 12/31/2023 at 8:13
== END ==
PROVIDERS: PCP Student in an Organized Health Care Education/Training Program; Referring Provider Physical Medicine & Rehabilitation; Visit Provider Physical Medicine & Rehabilitation
DX: M50.122 Cervical disc disorder at C5-C6 level with radiculopathy (principal); M51.14 Intervertebral disc disorders with radiculopathy, thoracic region
CPT/HCPCS: 72050; 72070

== ENCOUNTER 2024-07-14 12:46 | Outpatient (CLI) | payer MEDICARE, OTHER, SELFPAY ==
[2024-07-14] VITALS (8 sets, daily range): BP systolic 142–195; BP diastolic 62–91; PULSE 75–83; RESP 16–19; TEMP 36.9; O2SAT 96–100
[2024-07-14] MEDS: MIDAZOLAM 2 MG/2 ML VIAL IV (14:30)
[2024-07-14] MEDS: BUPIVACAINE 0.5% (PF) 10 ML VIAL 2 ML INJ (14:33)
[2024-07-14] MEDS: BETAMETHASONE 30 MG/5 ML MDV 12 MG INJ ×2 (14:34→14:35)
[2024-07-14] MEDS: iopamidoL 15 ML VIAL 3 ML INJ (14:34)
--- NOTE | 2024-07-14 14:45 | PM.PROC.IR.1 ---
Date/Time/Diagnoses Date of procedure: 07/14/24 Time of procedure: 14:46 Pre-procedure diagnosis: Sacroiliac joint pain/DJD Post-procedure diagnosis: same Procedure Notes Procedure: Fluoroscopic guided contrast controlled bilateral sacroiliac joint injection Indications: Franko is referred by Dr. Encarnacion for treatment of bilateral sacroiliac joint DJD Physician: Jr Garcia Total Fluoroscopy time (seconds): 10 Total sedation minutes: 13 Complications: none Procedure in detail & Post-procedure care: Description of procedure Fluoroscopic guided, contrast controlled bilateral sacroiliac joint injection Following review of allergies and review of potential side effects and complications, including, but not necessarily limited to, infection, allergic reaction, local tissue breakdown, temporary as well as permanent nerve injury, paralysis, stroke and possible , the patient indicated that they understood and agreed to proceed. An informed consent was signed by the patient, witnessed by a nurse, and placed in the patient's chart. Additionally, other treatment options including modalities, medications, and physical therapy were reviewed with the patient. After review of previous anaesthesic history and IV conscious sedation the patient was deemed safe to proceed with today?s procedure with IV conscious sedation as ASA class II designation. Safety time-out was performed to confirm patient ID, procedure to be performed and site of procedure. IV sedation was accomplished with a combination of 2mg Versed were administered by the RN after DO order, titrated to patient comfort during the course of the procedure while the patient remained responsive to all verbal commands In the prone position following sterile prep and drape of the pelvic region, the hyper lucency on in the inferior aspect of the sacroiliac joint was identified fluoroscopically the skin was anesthetized be a 25 gauge 1.5 inch needle with approximately 2cc of 1% lidocaine solution. At this point, a 22 gauge 3 in spinal needle was atraumatically introduced and advanced under fluoroscopic guidance into the inferior aspect of the right sacroiliac joint. Following negative aspiration, approximately 0.3cc of Isovue-300 was injected confirming intra-articular placement without vascular uptake. Radiographic data, including multiple fluoroscopic views of the pelvis, reveals a spinal needle in the sacroiliac joint hyper lucent zone. Subsequent view show flow contrast tear superiorly and inferiorly within the joint capsule without vascular intrathecal uptake. At this point a total of 1cc of 0.5% Marcaine was combined with 1cc of 6mg of betamethasone was injected without incident. Attention was then refocused the left sacroiliac joint where the procedure was replicated. The procedure tolerated the procedure well without signs or symptoms of complications prior to transfer to the recovery area continued monitoring without incident. The patient was then transferred to the recovery area with a bur observed for an appropriate time after the injection. The patient reverted a vas score of 7 prior to the procedure and post-procedure vas of 1. Postop instructions The patient was provided with a pain like to continue to record the patient's response to the target specific procedure prior to the patient's follow-up visit with the referring physician. Additionally, specific post injection care instructions and a contact number to our office were provided if concerns arise regarding the possible complications associated with procedure are suspected.
== END 2024-07-14 15:00 | disposition home or self-care (01) ==
PROVIDERS: PCP Student in an Organized Health Care Education/Training Program; Referring Provider Physical Medicine & Rehabilitation; Visit Provider Physical Medicine & Rehabilitation
DX: M53.3 Sacrococcygeal disorders, not elsewhere classified (principal); M46.1 Sacroiliitis, not elsewhere classified
CPT/HCPCS: 27096; 99152; J0702; J2250

== ENCOUNTER 2024-12-27 12:08 | Outpatient (CLI) | payer MEDICARE, OTHER, SELFPAY ==
[2024-12-27] VITALS (8 sets, daily range): BP systolic 133–173; BP diastolic 58–81; PULSE 77–83; RESP 16–22; TEMP 36.6; O2SAT 95–99
[2024-12-27] MEDS: MIDAZOLAM 2 MG/2 ML VIAL IV (13:43)
[2024-12-27] MEDS: LIDOCAINE 1% 20 ML INJ (13:50)
--- NOTE | 2024-12-27 14:00 | PM.PROC.IR.1 ---
Date/Time/Diagnoses Date of procedure: 12/27/24 Time of procedure: 14:01 Pre-procedure diagnosis: Sacroiliac joint pain/DJD Post-procedure diagnosis: same Procedure Notes Procedure: Fluoroscopic guided contrast controlled bilateral sacroiliac joint injection Indications: Franko is referred by Dr. Coley for treatment of bilateral sacroiliac joint DJD Physician: Jr Garcia Total Fluoroscopy time (seconds): 6 Total sedation minutes: 13 Complications: none Procedure in detail & Post-procedure care: Description of procedure Fluoroscopic guided, contrast controlled bilateral sacroiliac joint injection Following review of allergies and review of potential side effects and complications, including, but not necessarily limited to, infection, allergic reaction, local tissue breakdown, temporary as well as permanent nerve injury, paralysis, stroke and possible , the patient indicated that they understood and agreed to proceed. An informed consent was signed by the patient, witnessed by a nurse, and placed in the patient's chart. Additionally, other treatment options including modalities, medications, and physical therapy were reviewed with the patient. After review of previous anaesthesic history and IV conscious sedation the patient was deemed safe to proceed with today?s procedure with IV conscious sedation as ASA class II designation. Safety time-out was performed to confirm patient ID, procedure to be performed and site of procedure. IV sedation was accomplished with a combination of 2mg Versed were administered by the RN after DO order, titrated to patient comfort during the course of the procedure while the patient remained responsive to all verbal commands In the prone position following sterile prep and drape of the pelvic region, the hyper lucency on in the inferior aspect of the sacroiliac joint was identified fluoroscopically the skin was anesthetized be a 25 gauge 1.5 inch needle with approximately 2cc of 1% lidocaine solution. At this point, a 22 gauge 3 in spinal needle was atraumatically introduced and advanced under fluoroscopic guidance into the inferior aspect of the right sacroiliac joint. Following negative aspiration, approximately 0.3cc of Isovue-300 was injected confirming intra-articular placement without vascular uptake. Radiographic data, including multiple fluoroscopic views of the pelvis, reveals a spinal needle in the sacroiliac joint hyper lucent zone. Subsequent view show flow contrast tear superiorly and inferiorly within the joint capsule without vascular intrathecal uptake. At this point a total of 1cc of 0.5% Marcaine was combined with 1cc of 6mg of betamethasone was injected without incident. Attention was then refocused the left sacroiliac joint where the procedure was replicated. The procedure tolerated the procedure well without signs or symptoms of complications prior to transfer to the recovery area continued monitoring without incident. The patient was then transferred to the recovery area with a bur observed for an appropriate time after the injection. The patient reverted a vas score of 7 prior to the procedure and post-procedure vas of 1. Postop instructions The patient was provided with a pain like to continue to record the patient's response to the target specific procedure prior to the patient's follow-up visit with the referring physician. Additionally, specific post injection care instructions and a contact number to our office were provided if concerns arise regarding the possible complications associated with procedure are suspected.
== END 2024-12-27 14:15 | disposition home or self-care (01) ==
LOC: RAD 12:09
PROVIDERS: PCP Student in an Organized Health Care Education/Training Program; Referring Provider Physical Medicine & Rehabilitation; Visit Provider Physical Medicine & Rehabilitation
DX: M46.1 Sacroiliitis, not elsewhere classified (principal); M53.3 Sacrococcygeal disorders, not elsewhere classified
CPT/HCPCS: 27096; 99152; J1010; J1100; J2250